=== PATIENT | male | born 2000 | race Hispanic/Latino ===

== ENCOUNTER 2021-10-15 09:07 | Emergency (ER) | payer OTHER ==
[~2021-10-15] VITALS: Ht 180.3 cm; Wt 62.0 kg
[2021-10-15] VITALS (7 sets, daily range): BP systolic 116–141; BP diastolic 70–99
[2021-10-15] MEDS ORDERED: IBUPROFEN600 MG PO (10:34)
== END 2021-10-15 11:07 | disposition home or self-care (01) ==
LOC: ED 09:07
DX: S63.502A Unspecified sprain of left wrist, initial encounter (principal); S53.402A Unspecified sprain of left elbow, initial encounter; S60.222A Contusion of left hand, initial encounter; S50.312A Abrasion of left elbow, initial encounter; S60.812A Abrasion of left wrist, initial encounter; W01.0XXA Fall on same level from slipping, tripping and stumbling without subsequent striking against object, initial encounter; Y92.009 Unspecified place in unspecified non-institutional (private) residence as the place of occurrence of the external cause